=== PATIENT | female | born 1965 | race Caucasian/White ===

== ENCOUNTER → 2016-08-27 | Outpatient (CLI) | payer BC | LOC: BRMIMAGING 08:11 | PROVIDERS: ATTEND Family Medicine | DX: R05 Cough (principal) | CPT/HCPCS: 71020-PO ==

== ENCOUNTER 2017-04-02 09:31 | Inpatient (IN) | payer BC ==
[2017-04-02] MEDS ORDERED: LR 1,000 ML IV ONE (09:41)
[2017-04-02] MEDS ORDERED: LIDOCAINE 1% 2 ML INJ ID PRN (09:41)
--- NOTE | 2017-04-02 12:20 | PDHPUP ---
History & Physical Update H&P update statement: This history and physical update is based on an assessment of the patient which was completed after admission or registration (within 24 hours), but prior to the surgery/procedure. H&P update: H&P reviewed & patient examined, no change in patient's condition since H&P completed
[2017-04-02] MEDS ORDERED: CLINDAMYCIN 900 MG/DEXTROSE 50 ML IV ONE (12:21)
[2017-04-02] MEDS ORDERED: CLINDAMYCIN 900 MG/DEXTROSE/50 ML BAG IV ONE (12:23)
[2017-04-02] MEDS ORDERED: BUPIVACAINE 0.25% 30 ML SDV ONE (13:05)
[2017-04-02] MEDS ORDERED: BACITRACIN ZINC 14.2 GM OINTTUBE TP ONE (13:05)
[2017-04-02] MEDS ORDERED: GENTAMICIN SULFATE 80 MG/2 ML VIAL ONE ×2 (13:06→14:10)
[2017-04-02] MEDS ORDERED: ceFAZolin 1 GM/5 ML SYR ONE (13:06)
[2017-04-02] MEDS ORDERED: BACITRACIN 50,000 UNITS/10 ML SYR IRR ONE ×2 (13:07→14:11)
[2017-04-02] MEDS ORDERED: MIDAZOLAM 2 MG/2 ML VIAL ONE (13:07)
[2017-04-02] MEDS ORDERED: MIDAZOLAM 2 MG/2 ML VIAL IVP ONE (13:10)
--- NOTE | 2017-04-02 13:16 | PDANEPAE ---
ANE History of Present Illness mastectomy and reconstruction ANE Past Medical History - Cardiovascular History Hx Hypertension: No Hx Arrhythmias: No Hx Chest Pain: No Hx Coronary Artery / Peripheral Vascular Disease: No Hx CHF / Valvular Disease: No Hx Palpitations: No - Pulmonary History Hx COPD: No Hx Asthma/Reactive Airway Disease: No Hx Recent Upper Respiratory Infection: No Hx Oxygen in Use at Home: No Hx Sleep Apnea: No Sleep Apnea Screening Result - Last Documented: Negative - Neurologic History Hx Cerebrovascular Accident: No Hx Seizures: No Hx Dementia: No - Endocrine History Hx Diabetes: No Endocrine History Comment: HYPO THYROID - Renal History Hx Renal Disorders: No - Liver History Hx Hepatic Disorders: No - Neurological & Psychiatric Hx Hx Neurological and Psychiatric Disorders: No Neurological / Psychiatric History Comment: 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 R LUMPECTOMY 2008. POWER PORT PLACEMNT 2009. PORT REMOVAL 2012 ANE Review of Systems Review of Systems: - Exercise capacity METS (RN): 5 METS ANE Patient History - Allergies Allergies/Adverse Reactions: cephalexin Allergy (Severe, Verified 03/05/17 15:35) Other-Enter Comments Iodinated Contrast- Oral and IV Dye Allergy (Severe, Verified 03/05/17 15:35) Hives - Home Medications Home medications: home medication list seen and reviewed Home Medications: Dronabinol [Marinol 2.5 MG (*)] 2.5 mg PO HS PRN 03/05/17 [Last Taken 04/01/17] Levothyroxine [Synthroid 88 mcg (*)] 88 mcg PO DAILY06 03/05/17 [Last Taken ] celeCOXIB [CeleBREX] 100 mg PO BID 03/05/17 [Last Taken 03/19/17] oxyCODONE CR [Oxycontin] 15 mg PO BID 03/05/17 [Last Taken 04/01/17] oxyCODONE/APAP 5/325 [Percocet 5/325 (*)] 1 tab PO QID 03/05/17 [Last Taken ] - NPO status NPO Status: no food or drink >8 hours NPO Since - Liquids (Date): 04/02/17 NPO Since - Liquids (Time): 07:30 NPO Since - Solids (Date): 04/01/17 NPO Since - Solids (Time): 20:00 - Anes Hx Anes Hx: no prior problems - Smoking Hx Smoking Status: Never smoked - Alcohol Use Alcohol Use: None - Family Anes Hx Family Hx Anesthesia Complications: NA ANE Labs/Vital Signs - Vital Signs Blood Pressure: 149/86 Heart Rate: 69 Respiratory Rate: 14 O2 Sat (%): 97 Height: 170.18 cm Weight: 87.543 kg ANE Physical Exam - Airway Neck exam: FROM Mallampati Score: Class 1 Mouth exam: normal dental/mouth exam - Pulmonary Pulmonary: no respiratory distress - Cardiovascular Cardiovascular: regular rate and rhythym - ASA Status ASA Status: II ANE Anesthesia Plan Anesthesia Plan: GA w LMA
[2017-04-02] MEDS ORDERED: fentaNYL 100 MCG/2 ML INJ ONE ×3 (13:21→16:55)
[2017-04-02] MEDS ORDERED: LIDOCAINE 2% 100 MG/5 ML SYR ONE (13:22)
[2017-04-02] MEDS ORDERED: PROPOFOL/EMULSION 500 MG/50 ML BOTTLE IV ONE ×2 (13:22→14:44)
[2017-04-02] MEDS ORDERED: LIDOCAINE 2% JELLY 5 ML TUBE ONE (13:22)
[2017-04-02] MEDS ORDERED: DEXAMETHASONE 4 MG/ML VIAL ONE (13:23)
[2017-04-02] MEDS ORDERED: ONDANSETRON 4 MG/2 ML VIAL ONE (13:23)
[2017-04-02] MEDS ORDERED: PHENYLEPHRINE HCL 100 MCG/ML SYR ONE (13:42)
[2017-04-02] MEDS ORDERED: PROMETHAZINE HCL 25 MG/ML INJ IVP PRN ×2 (14:31→16:30)
[2017-04-02] MEDS ORDERED: HYDROmorphONE/DILAUDID 1 MG/ML INJ IVP PRN ×2 (14:34→16:30)
[2017-04-02] MEDS ORDERED: ROCURONIUM 50 MG/5 ML VIAL ONE (14:59)
[2017-04-02] MEDS ORDERED: SUGAMMADEX SODIUM 200 MG/2 ML VIAL IVP ONE (16:07)
[2017-04-02] MEDS ORDERED: HYDROCODONE/APAP 5/325 TAB PO PRN (16:30)
[2017-04-02] MEDS ORDERED: ALBUTEROL 3 ML DEYVIAL IH PRN (16:30)
[2017-04-02] MEDS ORDERED: DEXAMETHASONE 4 MG/ML VIAL IVP PRN (16:30)
[2017-04-02] MEDS ORDERED: PHENYLEPHRINE HCL 100 MCG/ML SYR IVP PRN (16:30)
[2017-04-02] MEDS ORDERED: OXYCODONE/APAP 5/325 TAB PO PRN (16:30)
[2017-04-02] MEDS ORDERED: ACETAMINOPHEN 500 MG TAB PO PRN (16:30)
[2017-04-02] MEDS ORDERED: NALOXONE HCL 0.4 MG/ML INJ IVP PRN (16:30)
[2017-04-02] MEDS ORDERED: LR 500 ML IV PRN (16:30)
[2017-04-02] MEDS ORDERED: METOCLOPRAMIDE 10 MG/2 ML VIAL IVP PRN (16:30)
[2017-04-02] MEDS ORDERED: LABETALOL HCL 5 MG/ML 20 ML MDV IVP PRN (16:30)
[2017-04-02] MEDS ORDERED: MEPERIDINE 25 MG/ML SYR IVP PRN (16:30)
[2017-04-02] MEDS ORDERED: ONDANSETRON 4 MG/2 ML VIAL IVP PRN (16:30)
--- NOTE | 2017-04-02 16:32 | POSTANESTH ---
Post Anesthetic Evaluation Cardiovascular Status: Normal, Stable Respiratory Status: Normal, Stable Level of Consciousness/Mental Status: Can Participate in Eval Pain Control: Adequate, Prn Tx Ordered Nausea/Vomiting Control: Adequate, Prn Tx Ordered Complications Possibly Related to Anesthesia: None Noted
[2017-04-02] MEDS: fentaNYL 100 MCG/2 ML INJ IVP PRN ×2 (16:55→17:22)
--- NOTE | 2017-04-02 17:39 | POSTOPPROG ---
Post Op Note Date of Operation: 04/02/17 Surgeon: Nain Nair Anesthesiologist: Adalberto Cruz Anesthesia: GET(General Endotracheal) Pre-op Diagnosis: Personal history of breast cancer Post-op Diagnosis: Same Procedure: Bilat simple mastectomy with left ax SLNB, bilat TE reconstruction Inf/Abcess present in the surg proc area at time of surgery?: No EBL: Minimal Complications: no immediate Drains: Adi Alvarez Specimen(s): bilat breasts, left ax nodes
[2017-04-02] MEDS: KETOROLAC 15 MG/1 ML SDV IVP SCH ×2 (18:34→23:15)
[2017-04-02] MEDS: CLINDAMYCIN 600 MG/DEXTROSE 50 ML IV SCH (21:16)
[2017-04-02] MEDS: oxyCODONE CR 15 MG TAB PO SCH (21:22)
[2017-04-02] MEDS: ONDANSETRON 4 MG/2 ML VIAL IVP PRN (21:27)
--- NOTE | 2017-04-02 22:23 | GOP ---
[f rep st] OPERATIVE REPORT DATE OF OPERATION: 04/02/2017 SURGEON: Theron Dempsey Jr., MD REVENUE TAX SPECIALIST: Yosvany Parr CST, by surgeon request (skilled surgical dental assistant was necessary due t o the technical complexity of the case and desire to minimize patient anesthesia time). ANESTHESIA: The patient had general inhalational anesthetic. ANESTHESIOLOGIST: Dr. Adalberto Cruz. PREOPERATIVE DIAGNOSIS: Inverted left nipple deformity with history of right breast cancer. POSTOPERATIVE DIAGNOSIS: Inverted left nipple deformity with history of right breast cancer. PROCEDURE PERFORMED: Immediate bilateral mastectomy reconstruction utilizing tissue expanders and hu man dermal allograft. FINDINGS: ESTIMATED BLOOD LOSS: During reconstruction was 10 cc. DESCRIPTION OF PROCEDURE: After the risks and benefits of procedure were explained to the patient, h ighlighting bleeding, infection, implant malposition, pain, numbness, damage to muscles or underlying structures, need for premature tissue denture laboratory technician removal, and need for additional procedures, formal o perative consent was obtained. She was taken to the operating room by Dr. Nair, where an uncomplicate d bilateral mastectomy was performed. The reconstruction began by irrigating both pockets copiously with normal saline. Meticulous hemosta sis was assured. The pockets were rinsed with double antibiotic saline. Submuscular pocket was crea barrington for the tissue denture laboratory technician through the inferior medial origin of the pectoralis major muscle. A sub muscular pocket was completely dissected beneath the serratus anterior and pectoralis major muscle. An Aeroform medium 600 cc tissue denture laboratory technician was soaked in triple antibiotic saline, tested with its bradley l remote control, and then placed into the correct position on the chest wall bilaterally. It was rosales tured down to the chest wall using 2-0 PDS suture. Medium contour AlloDerm acellular dermis graft sheets were triple rinsed in normal saline and soaked in triple antibiotic saline. They were then used to reconstruct the inferior pole of both breasts. An additional 10 cc of air was placed into the initial 190 cc tissue denture laboratory technician, to assure correct julio ng and functioning of the filled device prior to closing the mastectomy flaps. The mastectomy flaps were warm and pink with good capillary refill. Small dog ears were excised medially to assure smooth contour. 15-round MANDA drains were placed. The pockets were rinsed a final time with double antibiot ic saline. 15 cc of 0.25% plain Marcaine was instilled in the each pocket. The mastectomy flaps wer e then closed in 2 layers. Bacitracin, Xeroform, 4 x 4's, and compressive bra were placed in the ope rating room. She was extubated in the OR, taken to recovery room, awake and in stable condition. TISSUE EXPANDERS: Aeroform 600 cc medium devices bilaterally, filled to 210 cc. DRAINS: Two MANDA drains were placed. COMPLICATIONS: No complications. INDICATIONS FOR OPERATION: The patient is a 51-year-old, white female, who underwent a previous righ t lumpectomy for breast cancer and presented with a significant inverted left nipple deformity. She elected to undergo a completion right-sided mastectomy with prophylactic left breast mastectomy, and was referred by Dr. Nain Nair for consideration for reconstruction. She was noted to have a severe asymmetry between the 2 breasts prior to surgery from her previous procedure, but was deemed a good candidate to have bilateral skin-sparing mastectomies with tissue denture laboratory technician placement, and was taken t o the operating room for that purpose. /[id number]/MODL
[2017-04-03] MEDS: ONDANSETRON 4 MG/2 ML VIAL IVP PRN ×2 (03:03→08:35)
[2017-04-03] MEDS: HYDROCODONE/APAP 5/325 TAB PO PRN ×2 (03:03→08:38)
[2017-04-03] MEDS: LR 1,000 ML IV SCH ×2 (03:04→13:14)
--- NOTE | 2017-04-03 03:43 | GOP ---
[f rep st] OPERATIVE REPORT DATE OF OPERATION: 04/02/2017 SURGEON: Nain Nair MD SHORT FILLER BUNCH MACHINE OPERATOR: Yosvany Parr CST. ANESTHESIA: General. ANESTHESIOLOGIST: Dr. Cruz. PLASTIC SURGEON: Theron Dempsey MD. PREOPERATIVE DIAGNOSIS: 1. Personal history of right breast carcinoma. 2. Left nipple inversion. POSTOPERATIVE DIAGNOSIS: 1. Personal history of right breast carcinoma. 2. Left nipple inversion. PROCEDURE PERFORMED: 1. Bilateral simple mastectomy with left axillary sentinel node biopsy. 2. Immediate tissue business integration manager reconstruction with AlloDerm. FINDINGS: See below. INDICATIONS: 51-year-old female with a history of right breast carcinoma. She underwent a prior lumpectomy with radiation therapy. She has developed new left nipple inversion. Imaging studies show no definite evidence of malignancy. She has opted to undergo bilateral mastectomies at this time with left axillary sentinel node sampling. Surgical risks and benefits explained were bleeding, infection, differential diagnosis, skin flap necrosis, future breast cancer development, arm edema, nerve injury, as well as others. All questions were entertained. She desires to proceed. A hand frame surgical elastic knitter is standard, necessary and customary for the safe performance of this procedure. DESCRIPTION OF PROCEDURE: Upon returning from left breast lymphoscintigraphy, general anesthesia was induced. Bilateral breasts were elliptically incised, incorporating the nipple-areolar complexes. Using electrocautery, skin flaps were created to the level of the clavicles, sternum, inframammary fold, as well as latissimus dorsi muscle laterally. The breast envelopes were peeled from medial to lateral and taken high up into the axillary tails of [facility]. Both specimens were tagged for orientation and sent for permanent processing. The left axilla was opened. A collection of at least 3 lymph nodes were identified , measuring 5500 units, 3000 units, and 1500 units on the gamma counter. Background activity was all less than 250 units. No clinically suspicious adenopathy was present. Satisfactory hemostasis was assured throughout bilateral breast cavities, as well as the left axilla. Skin envelopes appeared all pink and healthy. Care of the case was turned to Dr. Dempsey for tissue business integration manager placement and wound closure. Copy requested to: Dr. Stephen Tillman /[id number]/MODL MTDD
[2017-04-03] MEDS: KETOROLAC 15 MG/1 ML SDV IVP SCH ×3 (05:41→18:27)
[2017-04-03] MEDS: CLINDAMYCIN 600 MG/DEXTROSE 50 ML IV SCH ×2 (05:42→15:19)
[2017-04-03] MEDS: LEVOTHYROXINE 88 MCG TAB PO SCH (05:42)
[2017-04-03] MEDS: oxyCODONE CR 15 MG TAB PO SCH ×2 (10:04→20:53)
[2017-04-03] MEDS ORDERED: ONDANSETRON DISINTEGRATING 4 MG TAB PO PRN (11:07)
[2017-04-03] MEDS ORDERED: DRONABINOL 2.5 MG CAP PO PRN (11:07)
[2017-04-03] MEDS ORDERED: oxyCODONE IR 5 MG TAB PO PRN (11:08)
--- NOTE | 2017-04-03 11:13 | SOAPPROG ---
SOAP Progress Note Assessment/Plan: Assessment:nausea and lightheadedness overnight. pain reasonably controlled, R> L. avss. comfortable. chest flaps pink and viable. hai serosang. s/p bilat mast. doing well overall. not ready for discharge - cont IVF until able to ambulate independently. diet when able. cont supportive care. cont home analgesics (cavernous hemangioma). anticipate dc tomorrow. Plan: 04/03/17 11:10 04/03/17 11:12 a Objective: Vital Signs Temp Pulse Resp BP Pulse Ox 36.5 C 71 14 101/60 94 04/03/17 08:00 04/03/17 08:00 04/03/17 08:00 04/03/17 08:00 04/03/17 08:00 04/02/17 04/03/17 04/04/17 05:59 05:59 05:59 Intake Total 3705 Output Total 910 415 Balance 2795 -415 ICD10 Worksheet Patient Problems: Problems Problem Status Onset Personal history of breast cancer Acute - ICD10 Problem Qualifiers (1) Personal history of breast cancer
[2017-04-03] MEDS: OXYCODONE/APAP 5/325 TAB PO SCH ×3 (13:03→20:53)
[2017-04-04] MEDS: KETOROLAC 15 MG/1 ML SDV IVP SCH ×2 (00:34→05:37)
[2017-04-04] MEDS: LEVOTHYROXINE 88 MCG TAB PO SCH (05:40)
[2017-04-04] MEDS: OXYCODONE/APAP 5/325 TAB PO SCH (05:41)
[2017-04-04] MEDS: LR 1,000 ML IV SCH (05:42)
[2017-04-04 08:01] VITALS: BP 114/82; PULSE 75; RESP 18; TEMP 98.1; O2SAT 91
--- NOTE | 2017-04-04 09:36 | SOAPPROG ---
SOAP Progress Note Assessment/Plan: Assessment:significantly improved overnight. less nausea - well controlled with zofran ODT. no further lightheadedness. able to ambulate independently today. avss. comfortable. skin color better. flaps pink. HAI thin/serosang. pod#2 s/p bilat mastectomy. improved. home today. rx zofran. f/u dr. rosales next week as scheduled. path pending. f/u rg simpson 2 weeks. full dc instructions explained. nausea and lightheadedness overnight. pain reasonably controlled, R>L. avss. comfortable. chest flaps pink and viable. hai serosang. s/p bilat mast. doing well overall. not ready for discharge - cont IVF until able to ambulate independently. diet when able. cont supportive care. cont home analgesics ( cavernous hemangioma). anticipate dc tomorrow. Plan: 04/03/17 11:10 04/03/17 11:12 a 04/04/17 09:34 Objective: Vital Signs Temp Pulse Resp BP Pulse Ox 36.7 C 75 18 114/82 H 91 L 04/04/17 08:00 04/04/17 08:00 04/04/17 08:00 04/04/17 08:00 04/04/17 08:00 04/03/17 04/04/17 04/05/17 05:59 05:59 05:59 Intake Total 9975 5795 Output Total 539 3457 Balance 6491 -187 ICD10 Worksheet Patient Problems: Problems Problem Status Onset Personal history of breast cancer Acute - ICD10 Problem Qualifiers (1) Personal history of breast cancer
--- NOTE | 2017-04-04 09:59 | GDS ---
[f rep st] DISCHARGE SUMMARY REASON FOR ADMISSION: History of breast cancer. HOSPITAL COURSE: 51-year-old female with a history of right breast carcinoma. She underwent a bilateral prophylactic mastectomy with left axillary sentinel node sampling with immediate tissue school childcare attendant reconstruction. She had a benign postoperative course, lengthened only by notable postop nausea and lightheadedness her first day. This resolved with supportive care measures. She was able to be discharged home on her regular medicine regimen. She had oxycodone for breakthrough discomfort. She was given a prescription for Zofran as needed for nausea. She will be seen by Dr. Dempsey as scheduled on the . She will be seen by Dr. Nair in 2 weeks. Full discharge instructions were explained prior to leaving. Copy requested to: Marcelle Mercado /[id number]/MODL MTDD
[2017-04-04] MEDS: oxyCODONE CR 15 MG TAB PO SCH (10:23)
--- NOTE | 2017-04-04 12:30 | ASDISCHSUM ---
Discharge Information Plan Status: Medically Cleared to Leave: Discharge Date:04/04/2017 11:21 AM CM D/C Disposition: ADT D/C Disposition:Home, Routine, Self-Care Projected Discharge Date:04/04/2017 11:21 AM Transportation at D/C: Discharge Delay Reason: Follow-Up Date:04/04/2017 11:21 AM Discharge Slot: Final Diagnosis: Placement Information Patient Contact Information Contact Name:MONICA Relationship:Russ Address: Work Phone: City: [facility] Phone: State/Zip Code: Email: Financial Information Financial Class:HMO and PPO Plans Primary Plan Desc: OUT OF STATE PPO Primary Plan Number:[id number] Secondary Plan Desc: Secondary Plan Number: Assessment Information Intervention Information Intervention Type:*Incorrect Registration Date of Service:04/02/2017 03:08 PM Patient Type:Inpatient Staff Member:KODY Gagnon, Sirena Hours: Discipline: Severity: Comment:
--- NOTE | 2017-04-08 09:56 | PQFORM ---
PHYSICIAN QUERY FORM Needs Your Response This query form is being sent to you to assure this patient record is coded properly. Please respond to the question below: ICT HELP DESK OFFICER QUESTION: Dr. Nair, The diagnosis of DUCTAL CARCINOMA IN SITU LEFT BREAST is documented in the Pathology Report dated 04/05/2017. Would this be appropriate as an additional diagnosis on the discharge summary? Yes No Other No - it wasn't diagnosed until after discharge. Clinically Undetermined Many thanks, DAMASO Malin HIM/Coding Department INSTRUCTIONS FOR RESPONSE: Answer question by clicking on the "Edit Document" button. Move cursor to area below the stars. When complete, hit "Save." Click on the "Sign" button, then click "Sign" again. Type in your PIN and hit "Enter." MTDD
== END 2017-04-04 11:21 | disposition home or self-care (01) | DRG 581 ==
LOC: INTOOBSV 09:31 → F3N 09:31 → F1N 11:47 → OBSVTOIN 04-03 11:28
PROVIDERS: ADMIT Surgery; ATTEND Surgery
PROC: 0HBV0ZX Excision of Bilateral Breast, Open Approach, Diagnostic (ICD-10-PCS; principal; 2017-04-02 12:00)
PROC: 07B60ZX Excision of Left Axillary Lymphatic, Open Approach, Diagnostic (ICD-10-PCS; principal; 2017-04-02 12:00)
PROC: 0HHV0NZ Insertion of Tissue Expander into Bilateral Breast, Open Approach (ICD-10-PCS; 2017-04-02 12:00)
DX: N64.59 Other signs and symptoms in breast (principal); Z85.3 Personal history of malignant neoplasm of breast; Z80.3 Family history of malignant neoplasm of breast; E03.9 Hypothyroidism, unspecified; D18.02 Hemangioma of intracranial structures
CPT/HCPCS: A9520; G0378; J1100; J1170; J1580; J1885; J2001; J2250; J2370; J2405; J2550; J2704; J3010; Q4116